=== PATIENT | male | born 1990 | race Caucasian/White ===

== ENCOUNTER 2019-02-14 14:31 | Emergency (ER) | payer MEDICAID ==
[~2019-02-14] VITALS: Ht 175.3 cm; Wt 79.5 kg
[~2019-02-14 14:31] MED LIST: LIDOcaine 1% W/epiNEPHrine 1:100,000 20ml vial ONE
[2019-02-14 14:43] VITALS: BP 144/86
[2019-02-14] MEDS ORDERED: LIDOcaine 1% w/EPI 1:200,000 injection 10mL vial IM ONE (15:20)
[2019-02-14] MEDS ORDERED: LIDOcaine 1% w/epiNEPHrine 1:200,000 30ml vial IM ONE (15:30)
[2019-02-14] MEDS ORDERED: CEPH500C5 PO (15:51)
== END 2019-02-14 16:41 | disposition home or self-care (01) ==
LOC: ER 14:33
DX: S01.81XA Laceration without foreign body of other part of head, initial encounter (principal); Z88.2 Allergy status to sulfonamides; Z79.2 Long term (current) use of antibiotics; W23.0XXA Caught, crushed, jammed, or pinched between moving objects, initial encounter; Y93.89 Activity, other specified; Y92.89 Other specified places as the place of occurrence of the external cause; Y99.8 Other external cause status
CPT/HCPCS: 12013; 99283

== ENCOUNTER 2019-02-21 08:22 | Emergency (ER) | payer MEDICAID ==
[~2019-02-21] VITALS: Ht 175.3 cm; Wt 79.4 kg
[~2019-02-21 08:22] MED LIST changes: +CEPH500C5 PO; -LIDOcaine 1% W/epiNEPHrine 1:100,000 20ml vial ONE
[2019-02-21 08:29] VITALS: BP 125/81
== END 2019-02-21 09:30 | disposition home or self-care (01) ==
LOC: ER 08:22
DX: S01.81XD Laceration without foreign body of other part of head, subsequent encounter (principal); Z88.2 Allergy status to sulfonamides; W23.0XXD Caught, crushed, jammed, or pinched between moving objects, subsequent encounter
CPT/HCPCS: 99281